=== PATIENT | male | born 1960 | race American Indian/Alaskan Native ===

== ENCOUNTER 2018-11-27 13:42 | Emergency (ER) | payer MEDICAID ==
[~2018-11-27] VITALS: Ht 177.8 cm; Wt 72.2 kg
[2018-11-27 13:46] VITALS: TEMP 98
[2018-11-27 16:37] LABS: BASO # 0.1 (0.0-0.2); BASO % 0.7 % (0.0-2.0); EOS # 0.1 (0.0-0.7); GRAN # 3.3 (1.4-6.5); GRAN % 46.7 % (42.2-75.2); HEMATOCRIT 38.5 % (42.0-52.0); HEMOGLOBIN 12.5 g/dl (13.5-18.0); LYMPH # 2.8 (1.2-3.4); LYMPH % 40.3 % (20.0-51.0); MEAN CELL VOLUME 91 fl (80.0-100.0); MEAN CORPUSCULAR HEMOGLOBIN 30 pg (27.0-31.0); MEAN CORPUSCULAR HGB CONC 33 g/dl (33.0-37.0); MEAN PLATELET VOLUME 9.8 fl (7.4-10.4); MONO # 0.8 (0.1-0.6); PLATELET COUNT 272 K/mm3 (130-400); RED BLOOD COUNT 4.23 M/mm3 (4.20-5.60); REDCELL DISTRIBUTION WIDTH-CV 13.3 % (11.5-14.5)
--- NOTE | 2018-11-27 16:45 | NUR ---
SW met with patient, per ED doctor request, to discuss drug treatment options. Patient's sister in law was also present. Patient is not interested in inpatient treatment and would like outpatient treatment options. Patient's sister in law reports that they have already scheduled two appointments, this week, with [facility] to pursue drug treatment with Manny. [facility] also provided the phone number for [facility] in [place]. [facility] reported back to ED doctor.
[2018-11-27 16:46] LABS: ALANINE AMINOTRANSFERASE < 6 U/L (21-72); ALBUMIN 4.1 gm/dL (3.5-5.0); ALKALINE PHOSPHATASE 84 U/L (50-136); ANION GAP 9 mmol/L (7-16); AST,SGOT 21 U/L (15-37); BILIRUBIN,TOTAL 0.3 mg/dL (0.0-1.0); BLOOD UREA NITROGEN 14 mg/dL (9-20); CALCIUM 9.5 mg/dL (8.4-10.2); CARBON DIOXIDE 29 mmol/L (22-30); CHLORIDE 104 mmol/L (98-107); CREATININE, serum 0.92 (0.66-1.25); GLUCOSE 77 mg/dL (74-106); SODIUM 142 mmol/L (137-145); TOTAL PROTEIN 7.5 gm/dL (6.4-8.2)
[2018-11-27] MEDS ORDERED: PHENERGAN 25 TA25 MG PO (17:05)
[2018-11-27] MEDS ORDERED: CATAPRES 0.1MG0.1 MG PO (17:05)
[2018-11-27 17:19] VITALS: BP 136/87; PULSE 69
== END 2018-11-27 17:19 | disposition home or self-care (01) ==
LOC: COL.ER 13:42
PROVIDERS: Emergency Medicine
DX: F11.23 Opioid dependence with withdrawal (principal); F17.210 Nicotine dependence, cigarettes, uncomplicated; F12.90 Cannabis use, unspecified, uncomplicated
CPT/HCPCS: J2550

== ENCOUNTER → 2019-02-08 | Outpatient (CLI) | payer MEDICAID ==
[~2019-02-08] MED LIST: CATAPRES 0.1MG0.1 MG PO; PHENERGAN 25 TA25 MG PO
== END ==
LOC: COL.RAD 06:37
DX: M51.16 Intervertebral disc disorders with radiculopathy, lumbar region (principal); M48.061 Spinal stenosis, lumbar region without neurogenic claudication

== ENCOUNTER → 2019-02-14 | Outpatient (CLI) | payer MEDICAID | LOC: COL.RAD 06:48 | DX: M19.012 Primary osteoarthritis, left shoulder (principal); R91.1 Solitary pulmonary nodule ==

== ENCOUNTER → 2019-03-28 | Outpatient (CLI) | payer MEDICAID | LOC: COL.RAD 07:16 | DX: M25.512 Pain in left shoulder (principal); R91.1 Solitary pulmonary nodule | CPT/HCPCS: Q9967 ==

== ENCOUNTER → 2019-04-16 | Outpatient (CLI) | payer MEDICAID ==
[~2019-04-16] MED LIST changes: +NEURONTIN600 MG/TAB PO
== END ==
LOC: MHCPAIN 08:41
DX: M47.817 Spondylosis without myelopathy or radiculopathy, lumbosacral region (principal); M54.16 Radiculopathy, lumbar region
CPT/HCPCS: G0463

== ENCOUNTER 2019-04-23 08:10 | Outpatient (CLI) | payer MEDICAID ==
[2019-04-23] VITALS (15 sets, daily range): BP systolic 132–158; BP diastolic 84–110; PULSE 68–81
[~2019-04-23] VITALS: Ht 177.8 cm; Wt 75.6 kg
--- NOTE | 2019-04-23 09:10 | NUR ---
Pt transported to ct per ambulation. Pt positioned on tilted toleft side with pillow. Monitors applied and O2 on at 2l/nc.
--- NOTE | 2019-04-23 09:35 | NUR ---
Specimen obtained and placed in formalin by Dr Pickard. Specimen labeled.
--- NOTE | 2019-04-23 11:52 | NUR ---
Discharge instructions given to pt.Pt verbalizes understanding.INT removed,catheter tip intact.Pt escorted out via wheelchair by this nurse.
== END 2019-04-23 12:16 | disposition home or self-care (01) ==
LOC: COL.RAD 08:10
DX: J84.10 Pulmonary fibrosis, unspecified (principal); R91.8 Other nonspecific abnormal finding of lung field

== ENCOUNTER → 2019-06-01 | Outpatient (CLI) | payer MEDICAID ==
--- NOTE | 2019-06-01 09:00 | NUR ---
procedure cancelled by dr mckenzie
== END ==
LOC: COL.RAD 08:26
DX: R91.1 Solitary pulmonary nodule (principal)

== ENCOUNTER → 2020-04-25 | Outpatient (CLI) | payer MEDICAID ==
[2020-04-25 13:17] LABS: BASO % 0.4 % (0.0-2.0); EOS % 0.3 % (0-4.0); GRAN # 4.6 (1.4-6.5); GRAN % 67.1 % (42.2-75.2); HEMOGLOBIN 16.3 g/dl (13.5-18.0); LYMPH # 1.7 (1.2-3.4); LYMPH % 25.1 % (20.0-51.0); MEAN CELL VOLUME 91 fl (80.0-100.0); MEAN CORPUSCULAR HEMOGLOBIN 31 pg (27.0-31.0); MEAN CORPUSCULAR HGB CONC 34 g/dl (33.0-37.0); MEAN PLATELET VOLUME 10.3 fl (7.4-10.4); MONO # 0.5 (0.1-0.6); PLATELET COUNT 265 K/mm3 (130-400); RED BLOOD COUNT 5.28 M/mm3 (4.20-5.60); REDCELL DISTRIBUTION WIDTH-CV 13.2 % (11.5-14.5)
[2020-04-25 13:37] LABS: ALBUMIN 4.6 gm/dL (3.5-5.0); BILIRUBIN,TOTAL 0.8 mg/dL (0.0-1.0); CALCIUM 9.3 mg/dL (8.4-10.2); CHOLESTEROL RISK RATIO 4.6; CREATININE, serum 1.31 (0.66-1.25); POTASSIUM 4.1 mmol/L (3.4-5.0); TOTAL PROTEIN 8.1 gm/dL (6.4-8.2)
[2020-04-25 13:59] LABS: HIV 1/2 Antibodies Non-Reactive; HIV-1p24 Antigen Non-Reactive
[2020-04-25 22:17] LABS: HEPATITIS B SURFACE ANTIBODY 33.5 (()); HEPATITIS B SURFACE ANTIGEN Negative (Negative)
[2020-04-25 23:12] LABS: HEPATITIS C VIRUS ANTIBODY Reactive (Negative)
== END ==
LOC: COL.LAB 12:07
PROVIDERS: Registered Nurse
DX: Z13.9 Encounter for screening, unspecified (principal); B19.20 Unspecified viral hepatitis C without hepatic coma